=== PATIENT | male | born 1975 | race Caucasian/White ===

== ENCOUNTER 2017-06-01 02:33 | Emergency (ER) | payer BC ==
[~2017-06-01] VITALS: Ht 182.9 cm; Wt 111.4 kg
[2017-06-01] MEDS ORDERED: LEVAQUIN 5500 MG/TA1 PO (06:57)
[2017-06-01] MEDS ORDERED: PERCOCET 325 MG1 TA2 PO (06:59)
[2017-06-01 07:14] VITALS: BP 134/90
== END 2017-06-01 07:14 | disposition home or self-care (01) ==
LOC: ED 02:33
DX: N20.1 Calculus of ureter (principal); R30.0 Dysuria; R82.71 Bacteriuria; R31.9 Hematuria, unspecified; R10.31 Right lower quadrant pain
CPT/HCPCS: J0696; J1885; J2270; J2405; J7030